=== PATIENT | female | born 2000 | race Caucasian/White ===

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

== ENCOUNTER 2021-03-07 16:30 | Observation (INO) ==
[2021-03-07] MEDS ORDERED: SODIUM CHLORIDE 0.9% 1000ML 1,000 ML IV ONE (18:00)
[2021-03-07] MEDS ORDERED: KETOROLAC TROMETHAMINE 15 MG/ML VIAL IV ONE (18:05)
[2021-03-07] MEDS ORDERED: GI COCKTAIL ED USE PO ONE (18:05)
--- NOTE | 2021-03-07 18:09 | Emergency Department Note ---
Impression & Plan Pneumomediastinum, Chest pain, Acute hypokalemia ED Provider Note NAME: ANGELIC GUZMAN AGE: 21 SEX: F : 2000 ARRIVES VIA: Walk-In INFORMANT: Patient ED PROVIDER(S): Jaime Hairston DO CHIEF COMPLAINT: chest pain HPI: Patient is a 21-year-old female who presents the ER for midsternal chest pain which radiates from the epigastric to the throat. Describes as burning/sharp pain which is worse with breathing and significancy worse with eating. It has been present constantly since Friday. She notes that now it is mainly only present with breathing, laying down or eating or drinking. Denies any belly pain, nausea, vomiting, or diarrhea. No dysuria, urgency, or frequency. Patient denies diabetes, hypertension, hyperlipidemia, CAD, history of sudden at a young age, and smoking. Patient denies swelling of calves, recent trips, history of immobilization or recent surgery, prior history of DVT, hemoptysis, history of malignancy, history of smoking but does admit to control. She notes she has not been coughing. She has not smoked marijuana in over a week. ROS: See above HPI for pertinent positives & negatives. A total of 10 systems reviewed and were otherwise negative. PAST MEDICAL HISTORY:See Below PAST SURGICAL HISTORY:See Below FAMILY HISTORY:See Below SOCIAL HISTORY:See Below HOME MEDICATIONS:See Below ALLERGIES:See Below VITALS:See Below PHYSICAL EXAMINATION: GENERAL: Sitting up in bed, alert, well appearing, well nourished, no distress, non-toxic EYE EXAM: normal conjunctiva. OROPHARYNX: no exudate, no erythema, lips, buccal mucosa, and tongue normal and mucous membranes are moist NECK: supple, no nuchal rigidity, no adenopathy, non-tender LUNGS: Clear to auscultation. Normal chest wall mechanics HEART: no murmurs, S1 normal and S2 normal ABDOMEN: abdomen soft, non-tender, normo-active bowel sounds, no masses, no rebound or guarding. UPPER EXTREMITIES: upper extremities are grossly normal. LOWER EXTREMITIES: No pitting edema. NEURO EXAM: Normal sensorium, cranial nerves II-XII grossly intact, normal spee ch, no gross weakness of arms, no gross weakness of legs. MEDICAL DECISION MAKING: Patient is a 19-year-old female who presents ER for pleuritic chest pain which is significantly worse with eating and drinking. IV was established blood was obtained. Labs show mild leukocytosis of 10.9 thousand. No significant anemia. D-dimer was negative. BMP with mild hypokalemia 3.4. LFTs bilirubin was unremarkable. Troponin was negative. Lipase was normal. Chest x-ray with questionable pneumomediastinum. CT Hermila of the chest does confirm this. No effusions. Discussed with Dr. Loving from pulmonology who recommended nonrebreather admission repeat x-rays and possible eval by GI and his pain was significant worse with eating and drinking. Discussed with the hospitalist for further evaluation. Triage Nursing notes reviewed. Limited review of prior medical records performed Vital Signs: reviewed and remarkable for no significant abnormalities Differential diagnosis: Differential diagnoses includes but is not limited to acute coronary syndrome, myocardial infarction, pericarditis, pulmonary embolus, aortic dissection, pneumonia, pneumothorax, musculoskeletal, shingles, esophageal. ER treatment provided: See below Diagnostics interpreted by me: ECG: Sinus bradycardia rate of 54 Normal axis No PVCs QTC 386 Cardiac Monitoring: An order was placed for continuous cardiac monitoring. The monitor shows a rate of 55 with sinus rhythm. Laboratory studies: As stated above and show below. Imaging studies: CTs and chest x-rays as discussed above Consultation(s): Discussed with hospitalist as well as pulmonology Procedures: none Critical Care: None Past Med/Surg History Medical History (Updated 03/07/21 @ 20:09 by Jaime Hairston DO) History of kidney infection Hx of ovarian cyst Stomach problems Surgical History History of esophagogastroduodenoscopy (EGD) Family History Other Cancer Diabetes Heart disease Hypertension Lung disease Social History Smoking Status: Never smoker Preferred Language: [place] marital status: Single Current Living Situation: Family current occupational status: employed Feels Safe at Home: Yes Allergies Allergies Allergy/AdvReac Type Severity Reaction Status Date / Time No Known Allergies Allergy Unverified 03/07/21 20:11 Home Meds Home Medications Medication Instructions Recorded Confirmed No Known Home Medications 03/07/21 03/07/21 Results & Data (ED) Vital Signs Vital Signs - 24 hr 03/07/21 16:31 03/07/21 18:11 03/07/21 18:30 Temperature 36.7 C Temperature Source Temporal Artery Scan Pulse Rate 64 55 L 52 L Pulse Rate from SpO2 Sensor 54 L 51 L Respiratory Rate 18 16 16 Blood Pressure 110/78 113/73 118/84 Blood Pressure Mean 88 86 95 Pulse Oximetry 99 97 98 Oxygen Delivery Method Room Air Oxygen Flow Rate Sepsis Recent Fever Within 48 Hours No Sepsis New/Unexplained Change in Mental Status No Sepsis Action Taken by Nursing No Action Required 03/07/21 18:32 03/07/21 19:01 03/07/21 19:30 Temperature Temperature Source Pulse Rate 49 L 48 L Pulse Rate from SpO2 Sensor 48 L 49 L Respiratory Rate 20 15 Blood Pressure 121/61 111/71 Blood Pressure Mean 81 84 Pulse Oximetry 99 99 Oxygen Delivery Method Room Air Oxygen Flow Rate Sepsis Recent Fever Within 48 Hours Sepsis New/Unexplained Change in Mental Status Sepsis Action Taken by Nursing 03/07/21 20:01 Temperature Temperature Source Pulse Rate 94 H Pulse Rate from SpO2 Sensor 90 Respiratory Rate 21 Blood Pressure 125/65 Blood Pressure Mean 85 Pulse Oximetry 99 Oxygen Delivery Method Non-rebreather Oxygen Flow Rate 15 Sepsis Recent Fever Within 48 Hours Sepsis New/Unexplained Change in Mental Status Sepsis Action Taken by Nursing Laboratory Data Result diagrams: 03/07/21 18:07 03/07/21 18:07 Lab Results 03/07/21 03/07/21 03/07/21 Range/Units 18:07 18:07 18:07 WBC 10.82 H (4.8-10.8) K/uL RBC 4.67 (4.2-5.4) M/uL Hgb 13.8 (12.0-16.0) g/dL Hct 41.6 (37-47) % MCV 89.1 (80-100) fL MCH 29.6 (25-34) pg MCHC 33.2 (32-36) g/dL RDW Std Deviation 45.5 (36.4-46.3) fL RDW Coeff of Charlie 14.0 (11.5-14.5) % Plt Count 297 (130-400) K/uL MPV 10.9 H (7.4-10.4) fL Immature Gran % (Auto) 0.2 % Neut % (Auto) 54.0 % Lymph % (Auto) 35.5 % Da[place]hin % (Auto) 7.9 % Eos % (Auto) 2.1 % Baso % (Auto) 0.3 % Neut # (Auto) 5.84 (1.4-6.5) K/uL Lymph # (Auto) 3.84 H (1.2-3.4) K/uL [place] # (Auto) 0.86 H (0.11-0.59) K/uL Eos # (Auto) 0.23 (0-0.5) K/uL Baso # (Auto) 0.03 (0-0.2) K/uL Immature Gran # (Auto) 0.02 (0.00-0.02) K/uL APTT 28.8 (21.0-31.0) Seconds PTT Ratio 1.1 D-Dimer 340 (0-500) ug/L FEU Sodium 138 (136-145) mmol/L Potassium 3.4 L (3.5-5.1) mmol/L Chloride 105 (98-107) mmol/L Carbon Dioxide 28 (21-32) mmol/L Anion Gap 5.0 (3-11) BUN 19 H (7-18) mg/dl Creatinine 0.72 (0.6-1.2) mg/dl Est Cr Clr Drug Dosing 111.8 ml/min Est GFR ( Amer) 137.8 ml/min Est GFR (Non-Af Amer) 118.9 ml/min BUN/Creatinine Ratio 26.1 H (10-20) Glucose 86 (70-99) mg/dl Calcium 9.1 (8.5-10.1) mg/dl Total Bilirubin 0.5 (0.2-1) mg/dl AST 16 (15-37) U/L ALT 16 (12-78) U/L Alkaline Phosphatase 62 (45-117) U/L Troponin I < 0.015 (0-0.045) ng/ml Total Protein 8.3 H (6.4-8.2) gm/dl Albumin 4.2 (3.4-5.0) gm/dl Globulin 4.1 H (2.5-4.0) gm/dl Albumin/Globulin Ratio 1.0 (0.9-2) Lipase 120 (73-393) U/L COVID-19 Eval Order 03/07/21 Range/Units 20:10 WBC (4.8-10.8) K/uL RBC (4.2-5.4) M/uL Hgb (12.0-16.0) g/dL Hct (37-47) % MCV (80-100) fL MCH (25-34) pg MCHC (32-36) g/dL RDW Std Deviation (36.4-46.3) fL RDW Coeff of Charlie (11.5-14.5) % Plt Count (130-400) K/uL MPV (7.4-10.4) fL Immature Gran % (Auto) % Neut % (Auto) % Lymph % (Auto) % [place] % (Auto) % Eos % (Auto) % Baso % (Auto) % Neut # (Auto) (1.4-6.5) K/uL Lymph # (Auto) (1.2-3.4) K/uL [place]hin # (Auto) (0.11-0.59) K/uL Eos # (Auto) (0-0.5) K/uL Baso # (Auto) (0-0.2) K/uL Immature Gran # (Auto) (0.00-0.02) K/uL APTT (21.0-31.0) Seconds PTT Ratio D-Dimer (0-500) ug/L FEU Sodium (136-145) mmol/L Potassium (3.5-5.1) mmol/L Chloride (98-107) mmol/L Carbon Dioxide (21-32) mmol/L Anion Gap (3-11) BUN (7-18) mg/dl Creatinine (0.6-1.2) mg/dl Est Cr Clr Drug Dosing ml/min Est GFR ( Amer) ml/min Est GFR (Non-Af Amer) ml/min BUN/Creatinine Ratio (10-20) Glucose (70-99) mg/dl Calcium (8.5-10.1) mg/dl Total Bilirubin (0.2-1) mg/dl AST (15-37) U/L ALT (12-78) U/L Alkaline Phosphatase (45-117) U/L Troponin I (0-0.045) ng/ml Total Protein (6.4-8.2) gm/dl Albumin (3.4-5.0) gm/dl Globulin (2.5-4.0) gm/dl Albumin/Globulin Ratio (0.9-2) Lipase (73-393) U/L COVID-19 Eval Order Covid19 at [facility] Administered Medications Discontinued Medications Al Hydrox/Mg Hydrox/Simethicone (Gi Cocktail Ed Use) 1 dose PO ONE ONE Stop: 03/07/21 18:06 Last Admin: 03/07/21 18:27 Dose: 1 dose Documented by: [id number] Sodium Chloride (Nss 1000ml) 1,000 mls @ 999 mls/hr IV .Q1H1M ONE Stop: 03/07/21 19:00 Last Infusion: 03/07/21 19:41 Dose: 0 mls/hr Documented by: [id number] Admin: 03/07/21 18:27 Dose: 999 mls/hr Documented by: [id number] Ioversol (Optiray 320 125ml) 119 ml IV ONCE ONE Stop: 03/07/21 18:53 Last Admin: 03/07/21 18:53 Dose: 119 ml Documented by: [id number] Ketorolac Tromethamine (Ketorolac Tromethamine 15 Mg/Ml Vial) 10 mg IV NOW ONE Stop: 03/07/21 18:06 Last Admin: 03/07/21 18:27 Dose: 10 mg Documented by: [id number] Imaging Data Radiologist's Impression: Chest X-Ray 03/07/21 18:00 XR chest 1V portable HISTORY: Atypical Chest Pain COMPARISON: Chest 08/08/2020. FINDINGS: The lungs are clear. Cardiac silhouette is normal in size. No pleural effusions. No pneumothorax. IMPRESSION: No acute process. ACT 112: Negative or not required by law. Electronically signed by: Andrzej Munoz M.D. 03/07/2021 6:28 PM Chest CTA 03/07/21 18:34 CHEST CTA for PULMONARY ARTERIES CT DOSE: 219.56 mGy.cm HISTORY: Atypical chest pain. Abnormal chest x-ray. Assess for pneumome diastinum. TECHNIQUE: Multiaxial CT images of the chest were performed following the intravenous administration of contrast to evaluate the pulmonary arteries. Maximal intensity projection images were also obtained. A dose lowering technique was utilized adhering to the principles of ALARA. COMPARISON STUDY: Chest 03/07/2021. FINDINGS: Normal caliber thoracic aorta with no evidence for dissection. No filling defects within the pulmonary arteries to suggest a pulmonary embolus. Limited views of the upper abdomen demonstrate a normal liver and spleen. The heart is normal in size. No pleural or pericardial effusions. Normal caliber esophagus. No mediastinal or hilar lymphadenopathy. There is confirmation of the scattered pneumomediastinum which extends into the neck base. No mediastinal fluid identified. The esophagus is normal in thickness. The central airways are patent. No fractures within the visualized osseous structures. No pneumothorax. The lungs are clear. No definite blebs identified. IMPRESSION: 1. Confirmation of the pneumomediastinum. 2. No evidence for pulmonary embolus. ACT 112: Negative or not required by law. Electronically signed by: Andrzej Munoz M.D. 03/07/2021 7:09 PM Discharge Plan Visit Data Chief Complaint: Chest Pain Stated Complaint: CHEST PAIN ED Provider: Jaime Hairston Discharge Problem: Pneumomediastinum, Chest pain, Acute hypokalemia Forms Stand Alone Forms: [facility] Prescriptions Prescriptions: No Action No Known Home Medications RF: 0 Discharge Problem: Chest pain Qualifiers: Chest pain type: unspecified Qualified Code(s): R07.9 - Chest pain, unspecified
[2021-03-07 18:18] LABS: Basophils # (auto) 0.03 K/uL (0-0.2); Basophils % (auto) 0.3 %; Eosinophils # (auto) 0.23 K/uL (0-0.5); Eosinophils % (auto) 2.1 %; Hematocrit (blood only) 41.6 % (37-47); Hemoglobin 13.8 g/dL (12.0-16.0); Immature Granulocytes # (auto) 0.02 K/uL (0.00-0.02); Immature Granulocytes % (auto) 0.2 %; Lymphocytes # (auto) 3.84 K/uL (1.2-3.4); Lymphocytes % (auto) 35.5 %; Mean Corpuscular Hemoglobin 29.6 pg (25-34); Mean Corpuscular Hgb Conc 33.2 g/dL (32-36); Mean Corpuscular Volume 89.1 fL (80-100); Mean Platelet Volume 10.9 fL (7.4-10.4); Monocytes # (auto) 0.86 K/uL (0.11-0.59); Monocytes % (auto) 7.9 %; Neutrophils # (auto) 5.84 K/uL (1.4-6.5); Platelet Count 297 K/uL (130-400); RDW Standard Deviation 45.5 fL (36.4-46.3); Red Blood Count 4.67 M/uL (4.2-5.4); White Blood Count 10.82 K/uL (4.8-10.8)
[2021-03-07 18:29] LABS: D Dimer 340 ug/L FEU (0-500); Partial Thromboplastin Ratio 1.1; Partial Thromboplastin Time 28.8 Seconds (21.0-31.0)
--- NOTE | 2021-03-07 18:29 | XRay Report ---
XR chest 1V portable HISTORY: Atypical Chest Pain COMPARISON: Chest 08/08/2020. FINDINGS: The lungs are clear. Cardiac silhouette is normal in size. No pleural effusions. No pneumot horax. IMPRESSION: No acute process. ACT 112: Negative or not required by law. Electronically signed by: Andrzej Munoz M.D. 03/07/2021 6:28 PM
[2021-03-07 18:35] LABS: Alanine Aminotransferase 16 U/L (12-78); Albumin Level 4.2 gm/dl (3.4-5.0); Aspartate Aminotransferase 16 U/L (15-37); BUN Creatinine Ratio 26.1 (10-20); Blood Urea Nitrogen 19 mg/dl (7-18); Calcium 9.1 mg/dl (8.5-10.1); Carbon Dioxide 28 mmol/L (21-32); Chloride 105 mmol/L (98-107); Creatinine Clr Calc Pharmacy 111.8 ml/min; Est GFR (African American) 137.8 ml/min; Est GFR (Non-African American) 118.9 ml/min; Glucose 86 mg/dl (70-99); Lipase 120 U/L (73-393); Potassium 3.4 mmol/L (3.5-5.1); Sodium 138 mmol/L (136-145)
[2021-03-07 18:40] LABS: Alkaline Phosphatase 62 U/L (45-117); Bilirubin,Total 0.5 mg/dl (0.2-1); Globulin 4.1 gm/dl (2.5-4.0); Total Protein 8.3 gm/dl (6.4-8.2); Troponin I < 0.015 ng/ml (0-0.045)
[2021-03-07] MEDS ORDERED: OPTIRAY 320 125ml IV ONE (18:52)
--- NOTE | 2021-03-07 19:10 | CT Scan Report ---
CHEST CTA for PULMONARY ARTERIES CT DOSE: 219.56 mGy.cm HISTORY: Atypical chest pain. Abnormal chest x-ray. Assess for pneumomediastinum. TECHNIQUE: Multiaxial CT images of the chest were performed following the intravenous administration of contrast to evaluate the pulmonary arteries. Maximal intensity projection images were also obtaine d. A dose lowering technique was utilized adhering to the principles of ALARA. COMPARISON STUDY: Chest 03/07/2021. FINDINGS: Normal caliber thoracic aorta with no evidence for dissection. No filling defects within th e pulmonary arteries to suggest a pulmonary embolus. Limited views of the upper abdomen demonstrate a normal liver and spleen. The heart is normal in size. No pleural or pericardial effusions. Normal ca liber esophagus. No mediastinal or hilar lymphadenopathy. There is confirmation of the scattered pneu momediastinum which extends into the neck base. No mediastinal fluid identified. The esophagus is nor mal in thickness. The central airways are patent. No fractures within the visualized osseous structur es. No pneumothorax. The lungs are clear. No definite blebs identified. IMPRESSION: 1. Confirmation of the pneumomediastinum. 2. No evidence for pulmonary embolus. ACT 112: Negative or not required by law. Electronically signed by: Andrzej Munoz M.D. 03/07/2021 7:09 PM
[2021-03-07] MEDS ORDERED: KETOROLAC TROMETHAMINE 15 MG/ML VIAL IV PRN (21:07)
[2021-03-07] MEDS ORDERED: POTASSIUM CHLORIDE / WTR 10 MEQ/100 ML PLCT IV STA (21:07)
--- NOTE | 2021-03-07 21:16 | History & Physical Report ---
Date of Service March 07, 2021 Assessment & Plan (1) Pneumomediastinum: 21 yo F Hx GERD admitted for chest pain, found to have pneumomediastinum on CTA Chest. Pneumomediastinum: - Presented with several days of chest pain, constant, but worse with activity, with associated pain with swallowing. - No recent history of vomiting, cocaine use, chest trauma. - CXR and CTA Chest show pneumomediastinum. - Case discussed with Dr. Loving; plan for 15L nonrebreather overnight, with Pulm to see in AM. - NPO for now. Defer GI consult for now, but if pain worsens or develops vomiting will consult GI. - Repeat CXR in AM, consider repeat CTA Chest if cannot evaluate pneumomediastinum on XR. Hypokalemia: - K 3.4 in ER, repleted with K Jenni 40meq. - Repeat BMP in AM. GERD: - History of, was on PPI for several months for DC. - Pepcid IVwhile undergoing evaluation of pneumomediastinum. Code Status: FULL CODE FEN: NPO; NSS 100cc/hr with KCl 20 meq DVT ppx: SCDs Dispo: Med/Surg with Telemetry (2) Acute hypokalemia: History of Present Illness Chief Complaint: chest pain Primary Care Provider: Olvin Viramontes 21 yo F Hx GERD presented to ER for several days of chest pain with pain with swallowing. Was in her usual state of health in the days prior; no recent illness, cough, vomiting, reflux symptoms, drug use such as cocaine. Does smoke marijuana but has not for about a week. In the ER patient had CXR which was concerning for pneumomediastinum, which was confirmed on CTA Chest. Labwork without abnormality save for K 3.4. On my interview patient reports no SOB, nausea, and her chest pain is improved after receiving Toradol and GI Cocktail. Dr. Loving also made aware of patient and advised placing her on nonrebreather with repeat imaging in the AM. Allergies Allergy/AdvReac Type Severity Reaction Status Date / Time No Known Allergies Allergy Unverified 03/07/21 20:11 Home Medications Medication Instructions Recorded Confirmed Type No Known Home Medications 03/07/21 03/07/21 History Past Med/Surg History Medical History History of kidney infection Hx of ovarian cyst Stomach problems Surgical History History of esophagogastroduodenoscopy (EGD) Family History Other Cancer Diabetes Heart disease Hypertension Lung disease Social History Smoking Status: Never smoker Hx Alcohol Use: Yes Preferred Language: Spanish Communication Ability: Effective Certified Pharmacy Technician Required: No Beliefs That Will Affect Care: None marital status: Single Current Living Situation: Other Current Living Situation Comment: roommates current occupational status: employed Other Information That Helps Us Care for You: No Feels Safe at Home: Yes Safety Concerns: Feels Safe At This Time Assistive Devices: Glasses Review of Systems Review of Systems: All systems reviewed & are unremarkable except as noted in HPI & below Constitutional: no fever, no chills and no malaise Respiratory: no cough and no dyspnea Cardiovascular: + chest pain; no palpitations and no edema Gastrointestinal: no abdominal pain, no heartburn, no nausea, no vomiting, no constipation and no diarrhea/loose stools Genitourinary: no dysuria and no hematuria Physical Exam Constitutional: WD/WN, vitals as above Eyes: PERRL, conjunctivae normal, anicteric sclerae ENMT: external ear and nose normal, oropharynx normal Neck: normal visual inspection Respiratory: normal respiratory effort, lungs clear to auscultation Cardiovascular: RRR, no murmur, no edema Gastrointestinal (Abdomen): normal bowel sounds, soft, nontender, no hepatosplenomegaly Musculoskeletal: no cyanosis or clubbing, extremities motor strength 5/5 Skin: no rashes, warm and dry Neurologic: No focal deficits Psychiatric: A+Ox3, euthymic affect Results & Data Results & Data ([facility]) Vital Signs (Past 12 Hours) Vital Signs Temp Pulse Resp BP Pulse Ox 03/07/21 21:01 50 L 22 115/72 99 03/07/21 20:30 49 L 20 116/76 100 03/07/21 20:01 94 H 21 125/65 99 03/07/21 19:30 48 L 15 111/71 99 03/07/21 19:01 49 L 20 121/61 99 03/07/21 18:30 52 L 16 118/84 98 03/07/21 18:11 55 L 16 113/73 97 03/07/21 16:31 36.7 C 64 18 110/78 99 Code Status & VTE Plan VTE Prophylaxis Plan VTE Prophylaxis will be ordered: Yes Supervising Physician Co-Signing Physician Notes Patient seen and examined, chart reviewed, case discussed with Dr. Stuart and I agree with her assessment and plan as above. 21yo female with chest pain, painful swallowing, found with pneumomediastinum On exam she is afebrile, sinus bradycardia, stable Skin - no rash HEENT - NC/AT, PERRL, EOMI, MMM Heart - +S1/S2, regular, no m/r/g Lungs - CTA Abd - +BS, soft, NT/ND Ext - No edema Labs and images reviewed Assessment/Plan -Pneumomediastinum uncertain etiology -NRB -Pulmonary input appreciated -Repeat CXR in AM -Remainder of plan as above Resident Activity Tracking Resident Involvement: Resident Care Provided Care Provided: Adult Hospital Medicine
[2021-03-07] MEDS ORDERED: ONDANSETRON INJ 2 MG/ML 2 ML VIAL IV PRN (23:02)
[2021-03-08] MEDS: NSS + 20MEQ KCL 20 MEQ/1,000 ML BAG IV SCH ×3 (00:17→10:27)
[2021-03-08] MEDS: FAMOTIDINE 20 MG in SYRINGE 3 ML IV SCH ×2 (00:21→08:56)
--- NOTE | 2021-03-08 04:17 | Billing Data ---
Date of Service March 07, 2021 Coding Level of Care Code 30766 OBS Care - Level 2
--- NOTE | 2021-03-08 07:06 | Hospitalist Progress Note ---
Date of Service March 08, 2021 Assessment & Plan (1) Pneumomediastinum: 21 yo F Hx GERD admitted for chest pain, found to have pneumomediastinum on CTA Chest. Pneumomediastinum: - Presented with several days of chest pain, constant, but worse with activity, with associated pain with swallowing. - No recent history of vomiting, cocaine use, chest trauma. - possible recent heavy use of etoh - CXR and CTA Chest show pneumomediastinum. repeat CXR showing same - Case discussed with Dr. Loving at admission. nonrebreather 15L to aid reabsorption of pneumomediastinum - Defer GI consult for now, but if pain worsens or develops vomiting will consult GI and consider endoscopy - Gastrografin swallow neg for esophageal rupture - lipase wnl, trop neg x2 - continue conservative care. d/c'd IV toradol 15 q6h. added PO Tylenol 1000 mg TID Bradycardia: -consistently 40s on vitals. sinus omega noted on ecg -considered reflex, pain, vs normal variant vs lyme - considered anorexia and bulimia though inconsistent w/ patient hx - patient does have hyperchloremia - monitor clinically Hypokalemia: - K 3.4 in ER, repleted with K Riders 40meq. 3.8 on repeat - daily BMP - 20 meq KCl oral in AM GERD: - History of, was on PPI for several months in past - Pepcid IV while undergoing evaluation of pneumomediastinum. - d/c'd pepcid IV. added 40 mg PO pantoprazole daily per rec of pulmonology. course will be 2 wks Code Status: FULL CODE FEN: regular diet, easy to chew. IV fluids since discontinued. likely mild dehydration, supported by BUN/Cr >20 DVT ppx: SCDs Dispo: Med/Surg with Telemetry (2) Acute hypokalemia: Admission and Anticipated Discharge Date Admission Date: March 07, 2021 Supervising Physician Co-Signing Physician Notes I personally examined the patient and verified all mcgill points of history and exam, discussed case, and agree with decision making with Dr Thompson pain still persists. no other new complaints vitals noted nad but does appear mildly uncomfortable heent nc at mmm breathing unlabored lungs cta b/l no rr//w small faint anterior upper chest lower neck crepitis spontaneous pneumomediastinum - pain control, supportive care. fortunately no clear catastrophic underlying causes. otherwise as above Subjective Patient still has chest pain. Original onset was AM of 03/05. The pain is waxing and waning and is present most of the time. It is worse w/ deep breaths, movement, eating, and hiccups. She has mild odynophagia. Patient has had mild dyspnea on exertion since 03/05. Denies occupational exposures or injuries. No hx of asthma. Patient is not athlete and follows sedentary lifestyle. Patient had alcohol use of 6-7 beer over the course of 10 hours on 03/03. Denies vomiting or hemoptysis. She drinks 2-3 drinks on the weekends usually and did have 2 episodes of emesis earlier in the month from alcohol. Currently main sx is cp, slightly worse than last night. The toradol provided temporary relief. It radiates to mid back if laying down. Pain starts upper mid chest goes down to sternum. It somewhat hurts to swallow both solids and liquids. PM update: patient still has lots of pain despite toradol. She does not feel ready for home today. Review of Systems Review of Systems: Constitutional: Denies fever, chills Eyes: Denies blurry vision, vision changes ENT: See HPI Cardiovascular: See HPI Respiratory: See HPI Gastrointestinal: Denies abdominal pain, nausea, vomiting, constipation, diar ovidio Genitourinary: Denies urinary symptoms including dysuria Musculoskeletal: Denies weakness. Neurological: Denies headache, numbness, tingling, focal weakness Physical Exam Physical Exam: General: Grossly A&O. NAD. Cooperative. HEENT: Atraumatic, normocephalic. No TTP. Pulm: CTAB. -wheezes, -rales, -rhonchi. No respiratory distress. Cardiac: RRR, -mrg. No LE edema. Abdominal: Nontender, nondistended, soft. MSK: No spinal TTP. No chest wall TTP. Results & Data Results & Data ([facility]) Vital Signs (Past 12 Hours) Vital Signs Temp Pulse Pulse Pulse Resp BP BP 03/08/21 03:37 36.5 C 46 L 18 106/63 03/07/21 23:24 48 L 03/07/21 23:04 36.6 C 48 L 16 03/07/21 23:02 36.6 C 48 L 16 03/07/21 22:00 43 L 19 117/72 03/07/21 21:30 47 L 16 107/70 03/07/21 21:01 50 L 22 115/72 03/07/21 20:30 49 L 20 116/76 03/07/21 20:01 94 H 21 125/65 03/07/21 19:30 48 L 15 111/71 BP Pulse Ox Pulse Ox 03/08/21 03:37 100 03/07/21 23:24 03/07/21 23:04 106/66 100 03/07/21 23:02 106/66 100 100 03/07/21 22:00 100 03/07/21 21:30 100 03/07/21 21:01 99 03/07/21 20:30 100 03/07/21 20:01 99 03/07/21 19:30 99 Resident Activity Tracking Resident Involvement: Resident Care Provided Care Provided: Adult Hospital Medicine
--- NOTE | 2021-03-08 07:11 | XRay Report ---
XR chest 1V portable HISTORY: 21 years-old Female pneumomediastinum follow-up study in a patient with pneumomediastinum COMPARISON: Chest radiograph and CTA chest 03/07/2021 TECHNIQUE: Portable AP view of the chest FINDINGS: Cardiomediastinal and hilar silhouettes are within normal limits. Small amount of pneumoperitoneum re demonstrated which is stable to slightly decreased from comparison. No pneumothorax, pleural effusion , airspace consolidation or overt pulmonary edema. The bones appear grossly intact. IMPRESSION: Small volume of pneumomediastinum redemonstrated. No pneumothorax. ACT 112: Negative or not required by law. The above report was generated using voice recognition software. It may contain grammatical, syntax o r spelling errors. Electronically signed by: Chandler Weinstein M.D. 03/08/2021 7:10 AM
[2021-03-08 07:22] LABS: Hematocrit (blood only) 38.6 % (37-47); Hemoglobin 12.6 g/dL (12.0-16.0); Mean Corpuscular Hemoglobin 29.2 pg (25-34); Mean Corpuscular Hgb Conc 32.6 g/dL (32-36); Mean Corpuscular Volume 89.6 fL (80-100); Mean Platelet Volume 10.9 fL (7.4-10.4); Platelet Count 233 K/uL (130-400); RDW Coefficient of Variation 13.8 % (11.5-14.5); RDW Standard Deviation 45.9 fL (36.4-46.3); Red Blood Count 4.31 M/uL (4.2-5.4); White Blood Count 7.13 K/uL (4.8-10.8)
[2021-03-08 07:50] LABS: Calcium 8.5 mg/dl (8.5-10.1); Creatinine Clr Calc Pharmacy 131.8 ml/min; Est GFR (African American) 149.1 ml/min; Est GFR (Non-African American) 128.7 ml/min; Potassium 3.8 mmol/L (3.5-5.1)
--- NOTE | 2021-03-08 08:19 | Pulmonary Consultation ---
Date of Consultation March 08, 2021 Assessment & Plan (1) Pneumomediastinum: CT chest 03/07/2021 personally reviewed: Pneumomediastinum with subcu emphysema in the neck appreciated No pleural blebs, no pleural effusion. No mediastinal adenopathy --Spontaneous pneumomediastinum Patient does not have any history of asthma Patient denies any retching or bouts of heavy coughing She did have drinks on the March 04 weekend but denies any nausea or vomiting following that Continue with nonrebreather Plan: It is not uncommon to have spontaneous pneumomediastinum Patient's barium swallow was negative for any esophageal injury There is no subcu emphysema appreciated on the physical exam No intervention needed from pulmonary perspective, pneumomediastinum will resolve on its own. No need for repeat imaging with CAT scan. Would recommend not lifting anything heavy and avoiding any strenuous activity for at least 7 days. Avoid extensive coughing or retching. If the patient has history of GERD would recommend to take PPI for the next couple of weeks Please note the above document was generated using voice recognition software. It may contain grammatical, syntax or spelling errors.Any formal questions or concerns about the content, text or information contained within the body of this dictation should be directly addressed to the provider for clarification. History of Present Illness Attending Physician: Jaime Lyon DO History of Present Illness 21-year-old female with no significant past medical history was admitted to the hospital because of pneumomediastinum. Pulmonary consulted for the same. Dr. Hairston gave me a call late yesterday evening regarding the patient and I had discussed the plan of care on the phone with him. At the time of examination patient stated that she has been having issues with retrosternal and epigastric chest pain which started Friday night/Friday morning. It was out of the blue. She denies any history or recollection of any trauma. She denies any significant bouts of coughing, denies any retching or vomiting. No nausea. Denies any dizziness, no shortness of breath. No headache, no nausea, no vomiting Denies any fever or chills, no dysuria, no diarrhea. She denies any personal history of asthma. Social history: Does marijuana. Last use was a week ago. Drinks socially. Heavy drinking was on March 04 which would be Friday Allergies Allergy/AdvReac Type Severity Reaction Status Date / Time No Known Allergies Allergy Unverified 03/07/21 20:11 Home Medications Medication Instructions Recorded Confirmed Type No Known Home Medications 03/07/21 03/07/21 History Patient History Medical History History of kidney infection Hx of ovarian cyst Stomach problems Surgical History History of esophagogastroduodenoscopy (EGD) Family History Other Cancer Diabetes Heart disease Hypertension Lung disease Social History Smoking Status: Never smoker Hx Alcohol Use: Yes Preferred Language: Italian Communication Ability: Effective Restorative Coordinator Required: No Beliefs That Will Affect Care: None marital status: Single Current Living Situation: Other Current Living Situation Comment: roommates current occupational status: employed Other Information That Helps Us Care for You: No Feels Safe at Home: Yes Safety Concerns: Feels Safe At This Time Assistive Devices: Glasses Review of Systems Review of Systems: All systems reviewed & are unremarkable except as noted in HPI & below Physical Exam Physical Exam: Constitutional: No acute distress HEENT: EOMI, PERRLA, no subcu emphysema appreciated around the neck Respiratory system: Good air entry bilaterally, no wheeze, no rhonchi, no crackles CVS: S1-S2 positive, no murmurs or gallops Abdomen: Soft, nontender, nondistended, positive bowel sounds x4 Extremities: +2 pulses bilaterally radialis/ dorsalis pedis, no cyanosis, no edema, tattoo appreciated Neuro: Awake alert oriented x3 Psych: Normal mood and affect G/U: No Ramos Skin: no rashes, warm and dry Lymphatic: no cervical or axillary lymphadenopathy Results & Data Results & Data ([facility]) Vital Signs (Past 12 Hours) Vital Signs Temp Pulse Pulse Pulse Resp BP BP 03/08/21 07:41 36.4 C L 44 L 16 107/64 03/08/21 03:37 36.5 C 46 L 18 106/63 03/07/21 23:24 48 L 03/07/21 23:04 36.6 C 48 L 16 07/07/21 23:02 36.6 C 48 L 16 03/07/21 22:00 43 L 19 117/72 03/07/21 21:30 47 L 16 107/70 03/07/21 21:01 50 L 22 115/72 03/07/21 20:30 49 L 20 116/76 BP Pulse Ox Pulse Ox 03/08/21 07:41 100 03/08/21 03:37 100 03/07/21 23:24 03/07/21 23:04 106/66 100 03/07/21 23:02 106/66 100 100 03/07/21 22:00 100 03/07/21 21:30 100 03/07/21 21:01 99 03/07/21 20:30 100 03/08/21 07:07 03/08/21 07:07 PG Care Time/CCT Total # of Minutes Spent Total Time Spent with Patient: Total time spent is greater than 50% in coordination of care (as documented) at patient's floor/unit and/or counseling patient: Coding Level of Care Code 70667 Inpt Consult Level 4 Diagnoses Pneumomediastinum J98.2
--- NOTE | 2021-03-08 13:07 | Fluoroscopy Report ---
FL barium swallow CLINICAL HISTORY: pneumomediastinum. rule out esophageal perforation COMPARISON STUDY: Chest CTA 03/07/2021. FINDINGS: Sort Line images again demonstrate the small amount of pneumoperitoneum. The patient swallowed barium without difficulty. The esophagus is normal in course, caliber, motility. No evidence for esop hageal injury/tear. No extraluminal contrast identified. No hiatus hernia. IMPRESSION: No evidence for esophageal injury/tear. Small amount of pneumomediastinum persists. ACT 112: Negative or not required by law. Electronically signed by: Andrzej Munoz M.D. 03/08/2021 12:37 PM
[2021-03-08] MEDS ORDERED: KETOROLAC TROMETHAMINE 15 MG/ML VIAL IV ONE (13:49)
--- NOTE | 2021-03-08 16:33 | Discharge Summary ---
Date of Service March 08, 2021 Admission HPI Per Admitting Provider 21 yo F Hx GERD presented to ER for several days of chest pain with pain with swallowing. Was in her usual state of health in the days prior; no recent illness, cough, vomiting, reflux symptoms, drug use such as cocaine. Does smoke marijuana but has not for about a week. In the ER patient had CXR which was concerning for pneumomediastinum, which was confirmed on CTA Chest. Labwork without abnormality save for K 3.4. On my interview patient reports no SOB, nausea, and her chest pain is improved after receiving Toradol and GI Cocktail. Dr. Loving also made aware of patient and advised placing her on nonrebreather with repeat imaging in the AM. Discharge Data Allergies Allergy/AdvReac Type Severity Reaction Status Date / Time No Known Allergies Allergy Unverified 03/07/21 20:11 Consultations 03/07/21 20:05 ED Decision to Admit Stat 03/07/21 21:07 Consult Pulmonology Routine Ordered Studies 03/07/21 18:34 CT angio chest PE protocol Stat 03/08/21 11:23 FL barium swallow Urgent Hospital Course (1) Pneumomediastinum: 21 yo F Hx GERD admitted for chest pain, found to have pneumomediastinum on CTA Chest. Pneumomediastinum: - Presented with several days of chest pain, constant, but worse with activity, with associated pain with swallowing. - No recent history of vomiting, cocaine use, chest trauma. - CXR and CTA Chest show pneumomediastinum. - Case discussed with Dr. Loving; plan for 15L nonrebreather overnight, with Pulm to see in AM. - NPO for now. Defer GI consult for now, but if pain worsens or develops vom iting will consult GI. - Repeat CXR in AM, consider repeat CTA Chest if cannot evaluate pneumomediastinum on XR. Hypokalemia: - K 3.4 in ER, repleted with Noelle Arteaga 40meq. - Repeat BMP in AM. GERD: - History of, was on PPI for several months for DC. - Pepcid IVwhile undergoing evaluation of pneumomediastinum. Code Status: FULL CODE FEN: NPO; NSS 100cc/hr with KCl 20 meq DVT ppx: SCDs Dispo: Med/Surg with Telemetry (2) Acute hypokalemia: Discharge Plan Discharge Items Reason For Visit: PNEUMOMEDIASTINUM Medications and DC Order Prescriptions: No Action No Known Home Medications RF: 0 Admission Data Admit Date/Time: 03/07/21 21:07 Attending Provider: Jaime Lyon Admit Provider: Pina Stuart Primary Care Provider: Olvin Viramontes Other Providers: Shannon Lozano ; Christy Loving
[2021-03-08] MEDS ORDERED: ACETAMINOPHEN 500 MG TAB PO PRN (17:09)
[2021-03-08] MEDS: ACETAMINOPHEN 500 MG TAB PO SCH (17:35)
--- NOTE | 2021-03-08 17:47 | Billing Data ---
Date of Service March 08, 2021 Coding Level of Care Code 64209 Subseq Obs Care Lvl 2
[2021-03-08] MEDS ORDERED: PANTOprazole 40 MG TAB PO SCH (19:00)
--- NOTE | 2021-03-08 22:34 | Electrocardiogram Report ---
Test Reason : Blood Pressure : / mmHG Vent. Rate : 054 BPM Atrial Rate : 054 BPM P-R Int : 114 ms QRS Dur : 096 ms QT Int : 408 ms P-R-T Axes : -20 063 033 degrees QTc Int : 386 ms Sinus bradycardia Otherwise normal ECG When compared with ECG of 26-APR-2017 19:49, No significant change was found Confirmed by David Wheeler ([id number]) on 03/08/2021 10:34:08 PM Referred By: REFERRED SELF Confirmed By:David Wheeler
[2021-03-09] MEDS: ACETAMINOPHEN 500 MG TAB PO SCH (06:02)
--- NOTE | 2021-03-09 07:18 | Hospitalist Progress Note ---
Date of Service March 09, 2021 Assessment & Plan (1) Pneumomediastinum: 21 yo F Hx GERD admitted for chest pain, found to have pneumomediastinum on CTA Chest. Pneumomediastinum: - Presented with several days of chest pain, constant, but worse with activity, with associated pain with swallowing. - No recent history of vomiting, cocaine use, chest trauma. - possible recent heavy use of etoh - CXR and CTA Chest show pneumomediastinum. repeat CXR showing same - Case discussed with Dr. Loving at admission. nonrebreather 15L to aid reabsorption of pneumomediastinum - Defer GI consult for now, but if pain worsens or develops vomiting will consult GI and consider endoscopy - Gastrografin swallow neg for esophageal rupture - lipase wnl, trop neg x2 - continue conservative care. d/c'd IV toradol 15 q6h. added PO Tylenol 1000 mg TID Bradycardia: -consistently 40s on vitals. sinus omega noted on ecg -considered reflex, pain, vs normal variant vs lyme - considered anorexia and bulimia though inconsistent w/ patient hx - patient does have hyperchloremia - monitor clinically Hypokalemia: - K 3.4 in ER, repleted with K Riders 40meq. 3.8 on repeat - daily BMP - 20 meq KCl oral in AM GERD: - History of, was on PPI for several months in past - Pepcid IV while undergoing evaluation of pneumomediastinum. - d/c'd pepcid IV. added 40 mg PO pantoprazole daily per rec of pulmonology. course will be 2 wks Code Status: FULL CODE FEN: regular diet, easy to chew. IV fluids since discontinued. likely mild dehydration, supported by BUN/Cr >20 DVT ppx: SCDs Dispo: Med/Surg with Telemetry (2) Acute hypokalemia: Admission and Anticipated Discharge Date Admission Date: March 07, 2021 Subjective gaston. 4-5/10 chest pain. less odynophagia. no longer radiates to back. other ros neg. no vomiting. no dizzi, carter, blurry vision wants to go home. tylenol didnt help/. last year had gi problems. extra stomach acid. last year. resolved. q2 month flares. no longer radiates to back pcp [facility]. Review of Systems Review of Systems: See HPI Physical Exam Physical Exam: General: Grossly A&O. NAD. Cooperative. HEENT: Atraumatic, normocephalic. Pulm: CTAB. -wheezes, -rales, -rhonchi. No respiratory distress. Cardiac: RRR, -mrg. Radial pulses intact and symmetrical. Abdominal: Nontender, nondistended, soft. No crepitus or chest wall ttp. No neck ttp. full neck rom Results & Data Results & Data ([facility]) Vital Signs (Past 12 Hours) Vital Signs Temp Pulse Pulse Resp BP BP Pulse Ox 03/09/21 07:08 36.4 C L 41 L 20 106/58 L 100 03/09/21 03:48 43 L 03/09/21 03:31 36.5 C 45 L 16 105/68 99 03/08/21 23:44 36.7 C 60 17 100/61 100 03/08/21 19:32 36.7 C 54 L 114/60 100 Resident Activity Tracking Resident Involvement: Resident Care Provided Care Provided: Adult Hospital Medicine
[2021-03-09] MEDS ORDERED: POTASSIUM CHLORIDE PWD 20 MEQ PACK PO SCH (09:00)
[2021-03-09 09:07] LABS: BUN Creatinine Ratio 17.6 (10-20); Calcium 9.1 mg/dl (8.5-10.1); Creatinine Clr Calc Pharmacy 100.4 ml/min; Est GFR (African American) 119.5 ml/min; Est GFR (Non-African American) 103.1 ml/min; Potassium 4.1 mmol/L (3.5-5.1)
--- NOTE | 2021-03-09 12:23 | Discharge Summary ---
Date of Service March 09, 2021 Admission HPI Per Admitting Provider 21 yo F Hx GERD presented to ER for several days of chest pain with pain with swallowing. Was in her usual state of health in the days prior; no recent illness, cough, vomiting, reflux symptoms, drug use such as cocaine. Does smoke marijuana but has not for about a week. In the ER patient had CXR which was concerning for pneumomediastinum, which was confirmed on CTA Chest. Labwork without abnormality save for K 3.4. On my interview patient reports no SOB, nausea, and her chest pain is improved after receiving Toradol and GI Cocktail. Dr. Loving also made aware of patient and advised placing her on nonrebreather with repeat imaging in the AM. Admission Exam Per Admitting Provider Constitutional: WD/WN, vitals as above Eyes: PERRL, conjunctivae normal, anicteric sclerae ENMT: external ear and nose normal, oropharynx normal Neck: normal visual inspection Respiratory: normal respiratory effort, lungs clear to auscultation Cardiovascular: RRR, no murmur, no edema Gastrointestinal (Abdomen): normal bowel sounds, soft, nontender, no hepatosplenomegaly Musculoskeletal: no cyanosis or clubbing, extremities motor strength 5/5 Skin: no rashes, warm and dry Neurologic: No focal deficits Psychiatric: A+Ox3, euthymic affect Principal Diagnosis pneumomediastinum Discharge Exam General: Grossly A&O. NAD. Cooperative. HEENT: Atraumatic, normocephalic. Pulm: CTAB. -wheezes, -rales, -rhonchi. No respiratory distress. Cardiac: RRR, -mrg. Radial pulses intact and symmetrical. Abdominal: Nontender, nondistended, soft. No crepitus or chest wall ttp. No neck ttp. full neck rom. Discharge Data Allergies Allergy/AdvReac Type Severity Reaction Status Date / Time No Known Allergies Allergy Unverified 03/07/21 20:11 Consultations 03/07/21 20:05 ED Decision to Admit Stat 03/07/21 21:07 Consult Pulmonology Routine Ordered Studies 03/07/21 18:34 CT angio chest PE protocol Stat IMPRESSION: 1. Confirmation of the pneumomediastinum. 2. No evidence for pulmonary embolus. 03/08/21 11:23 FL barium swallow Urgent (contrast ordered was gastrografin) IMPRESSION: No evidence for esophageal injury/tear. Small amount of pneumomediastinum persists. 03/07 cxr: Questionable subtle lucency along the left mediastinal border. This could be artifact or represent trace pneumomediastinum. Follow-up PA and lateral views of the chest are recommended for further evaluation. 03/08 cxr: Small volume of pneumomediastinum redemonstrated. No pneumothorax. Hospital Course (1) Pneumomediastinum: 21 yo F Hx GERD admitted for chest pain, found to have pneumomediastinum on CTA Chest. No obvious precipitating factor noted. The patient was treated conservatively w/ 24+ hours of nonrebreather 100% O2. Gastrografin swallow was negative. She will be discharged home on 2 wks of 40 mg PO daily pantoprazole. Activity modification (avoiding triggering increase of intrathoracic pressures). PCP f/u in 1 wk. check BMP in 2 weeks to check electrolytes. f/u on results of pending labs (TSH, fT4, Mg, Phos, lyme) Pneumomediastinum: - Presented with several days of chest pain, constant, but worse with activity, with associated pain with swallowing. - No recent history of vomiting, cocaine use, chest trauma. - possible recent heavy use of etoh - CXR and CTA Chest show pneumomediastinum. repeat CXR showing same - Case discussed with Dr. Loving (pul) at admission. nonrebreather 15L to aid reabsorption of pneumomediastinum - Gastrografin swallow neg for esophageal rupture - lipase wnl, trop neg x2 - OTC pain control as needed Bradycardia: - consistently 40s on vitals w/ los of 30s during sleep. sinus omega noted on ecg. no av block. asymptomatic - considered reflex, pain, vs normal variant vs lyme - considered anorexia and bulimia though inconsistent w/ patient hx - ordered lyme, Mg, Phos, TSH, fT4 - if bradycardia persistent, symptomatic, or worsens in outpatient setting, consider additional workup such as Holter monitor Hypokalemia: - s/p repletion GERD: - History of, was on PPI for several months in past - Pepcid IV while undergoing evaluation of pneumomediastinum. - d/c'd pepcid IV. added 40 mg PO pantoprazole daily per rec of pulmonology. course will be 2 wks (2) Acute hypokalemia: (3) Bradycardia: Total Time Total Time Spent Total Time Spent (In Minutes): Less than 30 Discharge Plan Discharge Items Patient Disposition: Home - Self-Care Reason For Visit: PNEUMOMEDIASTINUM Discharge Diagnosis: pneumomediastinum Activity: Per Instructions section Activity Comment: avoid movements and activities that would increase thoracic pressure Non-emergency contact: Primary Care Provider Call non-emergency contact if: you have any medication questions, your symptoms worsen and you have a fever Follow-up/Referrals: Olvin Viramontes D.O. [Primary Care Provider] - (Please make an appointment to see your PCP in 1 week for hospital follow up.) Diet: Regular Addtl Attending Provider Instructions: Hi Ms. Betts, You were admitted to [facility] and were diagnosed with pneumomediastinum (air where it shouldn't be in the space outside internal organs in your chest). This will be treated conservatively. You were given some oxygen during the hospital stay. A scan (gastrografin swallow study) to make sure your esophagus didn't have leaks was also performed. For pain control, you can take tylenol or ibuprofen as needed (follow directions on box and don't exceed daily limits). Your kidney function was normal during this visit. Avoid these activities because they can make the pneumomediastinum worse sports, weight lifting, scuba diving, playing wind instruments. coughing, screaming, and crying. inhalation, even smoking, is not recommended. There is no official guideline, but air travel is not recommended for 2 months. Please continue taking 40 mg of pantoprazole once a day for 2 weeks. The prescription has been sent to [facility] [place]. Your heart rate was consistently low in the low 40s during this admission. Some labwork (thyroid labs, electrolytes, lyme testing) were ordered; the results are not back yet. Follow up with you primary care doctor in 1 week for routine hospital discharge follow up. Check your BMP (metabolic panel) in 2 weeks. You could consider a holter monitor (prolonged ekg heart monitoring) if the low heart rate continues or if you start having symptoms. Feel free to use your smart watch to check as well. return precautions If you develop any new or worsening symptoms including fever, chills, sweats, chest pain, chest pressure, difficulty breathing, uncontrolled nausea/vomiting, rash, wheezing, passing out or nearly passing out, bleeding, black/bloody bowel movements, or other new or concerning symptoms please call your primary care physician, or call 911 for re-evaluation in the emergency department if you are very concerned. Pending Studies at Discharge: Yes Studies:: lyme, TSH, fT4, Mg, Phos Stand-Alone Forms: My [facility] [employer], Smoking Cessation Medications and DC Order Prescriptions: New pantoprazole 40 mg Tablet,Delayed Release (Dr/Ec) 40 mg PO DAILY@1900 14 Days Qty: 14 RF: 0 No Action No Known Home Medications RF: 0 Discharge Orders: Discharge Order (Routine); Ordered 03/09/21 Ordered By: Ronald Thompson Admission Data Admit Date/Time: 03/07/21 21:07 Attending Provider: Jaime Lyon Admit Provider: Pina Stuart Primary Care Provider: Olvin Viramontes Other Providers: Shannon Lozano Muqueet Other Interventions: Discharge Summary Assessment (RN) Last Done: 03/09/21 12:32 Supervising Physician Co-Signing Physician Notes I personally examined the patient and verified all mcgill points of history and exam, discussed case, and agree with decision making with Dr Thompson Pain persist, but feeling up to going home. Also discussed bradycardia. Patient had mom on speaker phoneanswered all of her questions to the best my ability as well. vitals noted nad but does appear mildly uncomfortable heent nc at mmm breathing unlabored no accessory muscle use good effort spontaneous pneumomediastinum -fortunately no clear catastrophic underlying causes, as is most often the case. Improving enough that she feels okay to go home. Discussed concern on flights/other rapid changes in pressureunfortunately this may impact travel plans they had to fly to [place] in the near futurebut they will discuss further. Bradycardiaquestion baseline versus a bit of a smoldering vagal response to her paraesophageal pain from the pneumomediastinum, versus other. See Dr. Thompson's noteslabs are pending, close PCP follow-up. Otherwise as above. otherwise as above Resident Activity Tracking Resident Involvement: Resident Care Provided Care Provided: Adult [facility]
[2021-03-09 13:02] LABS: Magnesium 2.2 mg/dl (1.8-2.4); Phosphorus 2.5 mg/dl (2.5-4.9); T4 Free Thyroxine 0.93 ng/dl (0.8-1.6); Thyroid Stimulating Hormone 0.801 uIu/ml (0.300-4.500)
[2021-03-09 13:22] LABS: Lyme Ab IgG w/WB Rflx Negative (Negative)
[2021-03-09 13:25] LABS: Lyme Ab IgM w/WB Rflx Positive (Negative)
--- NOTE | 2021-03-09 16:08 | Billing Data ---
Date of Service March 09, 2021 Coding Level of Care Code 48983 OBS Care - Discharge
--- NOTE | 2021-03-10 06:40 | Electrocardiogram Report ---
Test Reason : Blood Pressure : / mmHG Vent. Rate : 045 BPM Atrial Rate : 045 BPM P-R Int : 112 ms QRS Dur : 100 ms QT Int : 470 ms P-R-T Axes : -18 064 050 degrees QTc Int : 406 ms Sinus bradycardia Nonspecific ST abnormality Abnormal ECG When compared with ECG of 07-MAR-2021 16:38, No significant change Confirmed by David Wheeler ([id number]) on 03/10/2021 6:40:05 AM Referred By: REFERRED SELF Confirmed By:David Wheeler
[2021-03-14 04:25] LABS: 18KDIGG Band NON-REACTIVE; 23KDIGG Band NON-REACTIVE; 23KDIGM Band REACTIVE; 28KDIGG Band NON-REACTIVE; 30KDIGG Band NON-REACTIVE; 39KDIGG Band NON-REACTIVE; 39KDIGM Band NON-REACTIVE; 41KDIGG Band REACTIVE; 41KDIGM Band NON-REACTIVE; 45KDIGG Band NON-REACTIVE; 58KDIGG Band NON-REACTIVE; 66KDIGG Band NON-REACTIVE; 93KDIGG Band REACTIVE; Lyme Antibodies, WB IgG NEGATIVE (NEGATIVE); Lyme Antibodies, WB IgM NEGATIVE (NEGATIVE)
== END 2021-03-09 13:03 | disposition home or self-care (01) ==
LOC: ED 16:30 → 2N 16:30 → SUATTDRO 21:07 → 2N 22:30